=== PATIENT | female | born 1980 ===

== ENCOUNTER 2025-01-03 05:12 | Day surgery (SDC) | payer OTHER ==
[2025-01-03] MEDS ORDERED: fentaNYL CITRATE 50 MCG/ML AMPUL IV PUSH ONE (08:15)
[2025-01-03] MEDS ORDERED: DIPHENHYDRAMINE HCL 50 MG/ML VIAL 1ML IV ONE (08:15)
[2025-01-03] MEDS ORDERED: ONDANSETRON HCL 2 MG/ML VIAL IV ONE (08:15)
[2025-01-03] MEDS ORDERED: MIDAZOLAM HCL 2 MG/2 ML VIAL IV ONE (08:15)
== END 2025-01-03 10:55 | disposition home or self-care (01) ==
LOC: AMB-ENDOS 05:12
PROVIDERS: ATTEND Colon & Rectal Surgery
DX: K63.5 Polyp of colon (principal); K62.1 Rectal polyp; D12.5 Benign neoplasm of sigmoid colon; Z88.2 Allergy status to sulfonamides; Z12.11 Encounter for screening for malignant neoplasm of colon